=== PATIENT | male | born 1960 | race Caucasian/White ===

== ENCOUNTER 2022-09-19 10:41 | Outpatient (CLI) | payer OTHER ==
[~2022-09-19 10:41] MED LIST: Magnevist 469MG/ML 20 ML VIAL ONE
== END 2022-09-19 10:42 | disposition home or self-care (01) ==
LOC: CSHMRI 10:41
PROVIDERS: ATTEND Radiology Radiation Oncology
DX: D49.6 Neoplasm of unspecified behavior of brain (principal); Z98.890 Other specified postprocedural states; G97.61 Postprocedural hematoma of a nervous system organ or structure following a nervous system procedure
CPT/HCPCS: 70553

== ENCOUNTER 2023-07-23 09:49 | Outpatient (CLI) | payer OTHER ==
[2023-07-23] MEDS ORDERED: Magnevist 469MG/ML 20 ML VIAL ONE (10:14)
== END 2023-07-23 09:50 | disposition home or self-care (01) ==
LOC: CSHMRI 09:49
PROVIDERS: ATTEND Internal Medicine
DX: C71.2 Malignant neoplasm of temporal lobe (principal); Z98.890 Other specified postprocedural states
CPT/HCPCS: 70553

== ENCOUNTER 2024-04-02 12:10 | Outpatient (CLI) | payer OTHER | END 2024-04-02 12:11 | disposition home or self-care (01) | LOC: CSHMRI 12:10 | PROVIDERS: ATTEND Internal Medicine | DX: C71.2 Malignant neoplasm of temporal lobe (principal) | CPT/HCPCS: 36415; 70553; 76376; 82565 ==

== ENCOUNTER 2024-05-25 09:53 | Outpatient (CLI) | payer OTHER ==
[2024-05-25] MEDS ORDERED: Magnevist 469MG/ML 20 ML VIAL ONE (11:02)
== END 2024-05-25 09:54 | disposition home or self-care (01) ==
LOC: CSHMRI 09:53
PROVIDERS: ATTEND Internal Medicine
DX: C71.2 Malignant neoplasm of temporal lobe (principal); Z98.890 Other specified postprocedural states; J32.8 Other chronic sinusitis
CPT/HCPCS: 70553; 76376

== ENCOUNTER 2024-07-20 11:16 | Outpatient (CLI) | payer OTHER | END 2024-07-20 11:17 | disposition home or self-care (01) | LOC: CSHMRI 11:16 | PROVIDERS: ATTEND Internal Medicine | DX: C71.2 Malignant neoplasm of temporal lobe (principal); Z98.890 Other specified postprocedural states | CPT/HCPCS: 36415; 70553; 76376; 82565 ==

== ENCOUNTER 2025-01-11 09:00 | Outpatient (CLI) | payer OTHER ==
[2025-01-11 10:05] LABS: Estimated GFR - POC 68.0
== END 2025-01-11 09:01 | disposition home or self-care (01) ==
LOC: CSHMRI 09:00
PROVIDERS: ATTEND Internal Medicine
DX: C71.2 Malignant neoplasm of temporal lobe (principal); D75.1 Secondary polycythemia; Z98.890 Other specified postprocedural states
CPT/HCPCS: 36415; 70553; 76376; 82565